=== PATIENT | male | born 1955 | race Caucasian/White ===

== ENCOUNTER 2017-09-05 07:32 | Day surgery (SDC) | payer BC ==
[~2017-09-05] VITALS: Ht 177.8 cm; Wt 120.2 kg
[~2017-09-05 07:32] MED LIST: ASPIRIN E.C.81 M1 PO; Arthrotec 75 PO; CALCIUM 500 MG1 EACH PO; CALTRATE 600 +1 EAC1 PO; CELEBREX100 MG PO; CELEBREX200 MG PO; ERGOCALCIF50000 UNIT PO; Glucosamine Sulfate PO; IRON325 M1 PO; NUVIGIL250 MG PO; OMEPRAZOLE40 M1 PO; PROAIR HFA8.5 GM IH; Proventil,Ventolin H IH; SAXENDA3 MG/0.5 M SC; THERAGRAN1 TABLET PO; TRAMADOL HCL50 MG PO; VITAMIN B-121000 MCG PO; Vicodin,Lortab 5/500 PO; ZYRTEC10 M3 PO; ZyrTEC PO
[2017-09-05 08:15] VITALS: BP 146/73
[2017-09-05] MEDS ORDERED: ULTRAM50 MG PO (11:42)
[2017-09-05 12:36] VITALS: BP 128/64
[2017-09-05 13:42] VITALS: BP 121/63
== END 2017-09-05 13:50 | disposition home or self-care (01) ==
LOC: SDC 07:32
PROC: 0YU60JZ Supplement Left Inguinal Region with Synthetic Substitute, Open Approach (ICD-10-PCS; principal; 2017-09-05)
DX: K40.30 Unilateral inguinal hernia, with obstruction, without gangrene, not specified as recurrent (principal); E66.01 Morbid (severe) obesity due to excess calories; Z68.38 Body mass index [BMI] 38.0-38.9, adult; J45.909 Unspecified asthma, uncomplicated; K21.9 Gastro-esophageal reflux disease without esophagitis; Z98.84 Bariatric surgery status
CPT/HCPCS: C1781; J0131; J0690; J1100; J1170; J1885; J2250; J2405; J3010